=== PATIENT | male | born 1965 | race Hispanic/Latino ===

== ENCOUNTER → 2021-01-29 11:04 | Outpatient (CLI) | payer OTHER, SELFPAY ==
[2021-01-29 13:29] LABS: COVID19 -Nasal RAPID Negative (Negative)
== END ==
PROVIDERS: Visit Provider Physician Assistant
DX: Z20.822 Contact with and (suspected) exposure to COVID-19 (principal); Z01.812 Encounter for preprocedural laboratory examination
CPT/HCPCS: 87635

== ENCOUNTER 2021-01-31 07:29 | Day surgery (SDC) | payer OTHER, SELFPAY ==
[2021-01-31 08:01] VITALS: BP 141/85; PULSE 83; RESP 16; TEMP 36.2; O2SAT 99; BMI 27.9
[2021-01-31] MEDS: LACTATED RINGERS 1,000 ML 42 ML IV ×2 (08:16→11:02)
--- NOTE | 2021-01-31 10:01 | SUR.PREOP ---
, Olivia, updated regarding delay. (1st case of the day running late.)
[2021-01-31] MEDS: INSULIN LISPRO 100 UNIT/ML 3ML VIAL 10 UNIT SUBCUT (10:26)
--- NOTE | 2021-01-31 10:29 | PM.PREOP ---
Pre-operative Note COVID-19 COVID-19 status: Negative Interval Note History & Physical reviewed/Exam performed by Physician: Yes Changes to H&P: No
[2021-01-31] MEDS: CLINDAMYCIN 600 MG/50 ML PIGGYBACK 50 MG IV (10:36)
--- NOTE | 2021-01-31 10:54 | SUR.OPER ---
Supine on padded OR bed, head on pillow, arms secured on padded arm boards at <90 degrees abduction, legs uncrossed, safety belt at abdomen, left leg prepped and draped in the sterile field.
[2021-01-31] MEDS: BUPIVACAINE 0.5% (PF) VIAL 30 ML INJ (11:03)
[2021-01-31 11:57] VITALS: BP 129/85; PULSE 92; RESP 18; TEMP 36; O2SAT 96
[2021-01-31 12:02] VITALS: BP 124/79; PULSE 93; RESP 16; O2SAT 95
--- NOTE | 2021-01-31 12:04 | PM.OP.1 ---
Operative Date/Time/Diagnoses Date of procedure: 01/31/21 Time of procedure: 12:04 Pre-op diagnosis: Left foot plantar fibromas Post-op diagnosis: same Procedure & Clinicians Procedure: Left foot plantar fibroma reduction Same procedure as scheduled: Yes Indications: Left foot painful plantar fibroma cluster along the inside of plantar foot. Conservative measures failed to alleviate his pain and he wished to have surgical intervention at this time. Surgeon: Rebecca Gallo Click Yes if Unassisted: Yes Anesthesia Type: General Operative Notes Closure Type: primary Specimen(s): none sent Estimated Blood Loss (mL): 10 Tourniquet time (min): 22 Procedure in detail: The patient was brought to the operating room and placed on the operating table in the supine position. The tourniquet was placed about the left ankle. Well padded appropriately aligned. After induction of general anesthesia the foot and ankle were prepped and draped in the usual aseptic manner. Local anesthesia was delivered to the foot. The tourniquet was inflated. Incision was made over the plantar medial foot in the location of the medial slip of the plantar fascia. The thickened fibroma distally just proximal to the 1st metatarsal head was included as well as the 2nd 1 which was a few cm proximal to this. The incision was deepened through subcutaneous tissues being careful to identify and retract all vital neural and vascular structures. All bleeders were cauterized and ligated as necessary. The plantar fascia was noted to be clean and healthy but did have these to enlargements as noted above within the fibers of the fascia. Through mixture of sharp debridement and cautery, I was able to bring down those enlarged fibromas to a point where they were not as prominent and a little bit more within the fibers of the surrounding tissues. Care was taken to keep an appropriate amount of thickness of the fascia through this debridement. The area was irrigated with copious amounts of normal sterile saline and the tourniquet was deflated. A prompt hyperemic response was seen to the foot. 4-0 Vicryl was used for the subcutaneous tissues and the knots were placed external at the ends of the incision. 3-0 nylon was also used in the skin. The foot was dressed with a sterile lightly compressive dressing and placed in a postoperative boot. He was transferred the PACU with vital signs stable and vascular status intact. Post-operative Condition: stable Disposition: PACU Plan for aftercare: Following a period of postoperative monitoring, the patient will be discharged to home on written and oral postoperative instructions including keeping the dressing dry and intact, avoiding ambulation on the foot, elevating the foot when seated at home. DVT prevention techniques have been reviewed. For the 1st postoperative visit the dressing will be changed and close to the 3rd postoperative week we will likely remove the sutures.
[2021-01-31 12:07] VITALS: BP 126/83; PULSE 93; RESP 10; O2SAT 98
[2021-01-31 12:12] VITALS: BP 130/85; PULSE 89; RESP 12; O2SAT 98
[2021-01-31 12:27] VITALS: BP 128/81; PULSE 84; RESP 13; TEMP 36.2; O2SAT 97
--- NOTE | 2021-01-31 13:02 | SUR.PHASEII ---
1235 Took over care for Phase II for discharge. Alee matthew given upon arrival to [facility], Clothes given.
--- NOTE | 2021-01-31 13:07 | SUR.PHASEII ---
1255 Stable, denies lightheadedness, nausea, pain, upon discharge. Dressed self without difficulty. Pleasant and appreciative.
== END 2021-01-31 12:55 | disposition home or self-care (01) ==
PROVIDERS: Referring Provider Podiatrist; Visit Provider Podiatrist
PROC: (CPT 28060; principal; 2021-01-31 09:15)
DX: M72.2 Plantar fascial fibromatosis (principal); E10.49 Type 1 diabetes mellitus with other diabetic neurological complication; M79.671 Pain in right foot; I10 Essential (primary) hypertension; Z79.4 Long term (current) use of insulin
CPT/HCPCS: 28060; 82962; J1100; J1815; J2250; J2405; J2704; J3010